=== PATIENT | male | born 1975 | race African-American/Black ===

== ENCOUNTER 2022-08-23 23:49 | Emergency (ER) | payer MEDICARE, MEDICAID ==
[~2022-08-23] VITALS: Ht 190.5 cm; Wt 89.0 kg
[~2022-08-23 23:49] MED LIST: OXYC-580 PO; TEMA30CA PO
[2022-08-23 23:58] VITALS: BP 133/86
== END 2022-08-24 00:50 | disposition home or self-care (01) ==
LOC: ER 23:49
DX: Z48.02 Encounter for removal of sutures (principal); Z98.890 Other specified postprocedural states
CPT/HCPCS: 99281